=== PATIENT | female | born 1995 | race Caucasian/White ===

== ENCOUNTER 2024-01-17 08:40 | Day surgery (SDC) | payer OTHER ==
[~2024-01-17] VITALS: Ht 152.4 cm; Wt 96.4 kg
[~2024-01-17 08:40] MED LIST: LR 1,000 ML IV SCH
[2024-01-17] MEDS ORDERED: HYDROmorphone 1 MG/1 ML SYRINGE [PACU/SDC ONLY] IV PRN (09:00)
[2024-01-17] MEDS ORDERED: LR 1,000 ML IV SCH (09:00)
[2024-01-17] MEDS ORDERED: Meperidine 50 MG/ML 1 ML VIAL IV PRN (09:00)
[2024-01-17] MEDS ORDERED: Scopolamine 1 MG Delivered 3-Day PATCH TD SCH (09:00)
[2024-01-17] MEDS ORDERED: Ondansetron 4 MG/2 ML VIAL IV PRN ×2 (09:00→11:45)
[2024-01-17] MEDS ORDERED: fentaNYL 50 MCG/ML 1 ML SYRINGE/VIAL [PACU/SDC ONLY] IV PRN (09:00)
[2024-01-17] MEDS ORDERED: hydrALAZINE 20 MG/ML 1 ML VIAL IV PRN (09:00)
[2024-01-17] MEDS ORDERED: Indocyanine Green 12.5 MG in Water For Injection,Sterile 2.5 ML IV ONE (09:30)
[2024-01-17] MEDS ORDERED: Midazolam 2 MG/2 ML VIAL ONE (09:41)
[2024-01-17] MEDS ORDERED: fentaNYL 50 MCG/ML 2 ML VIAL ONE ×2 (09:41→11:27)
[2024-01-17] MEDS ORDERED: Lidocaine PF 2% (20 MG/ML) 5 ML VIAL ONE (09:42)
[2024-01-17] MEDS ORDERED: NS 10 ML IV ONE (09:42)
[2024-01-17] MEDS ORDERED: Ketorolac 30 MG/ML VIAL ONE (09:42)
[2024-01-17] MEDS ORDERED: Glycopyrrolate 0.2 MG/ML 1 ML VIAL ONE (09:42)
[2024-01-17] MEDS ORDERED: Rocuronium 50 MG/5 ML Multi-Dose VIAL ONE (09:42)
[2024-01-17] MEDS ORDERED: Succinylcholine PF 200 MG/10 ML SYRINGE IV ONE (09:42)
[2024-01-17] MEDS ORDERED: dexAMETHasone 10 MG/ML VIAL ONE (09:42)
[2024-01-17] MEDS ORDERED: Ondansetron 4 MG/2 ML VIAL ONE (09:42)
[2024-01-17] MEDS ORDERED: NATURAL IRON65 MG PO (10:08)
[2024-01-17] MEDS ORDERED: PRENATAL TABLET PO (10:09)
[2024-01-17] MEDS ORDERED: NORCO 325 MG-51 TAB PO (10:39)
[2024-01-17 10:48] VITALS: BP 111/56; PULSE 67; TEMP 98.1
[2024-01-17] MEDS ORDERED: Topical Skin Adhesive 1 EACH (1 ML) TOP ONE (10:55)
[2024-01-17] MEDS ORDERED: Acetaminophen 325 MG TAB PO PRN (11:45)
[2024-01-17] MEDS ORDERED: Ibuprofen 600 MG TAB PO PRN (11:45)
[2024-01-17 12:25] VITALS: BP 111/73; PULSE 63; TEMP 97.3
[2024-01-17 12:40] VITALS: BP 119/70; PULSE 55
[2024-01-17 12:42] VITALS: TEMP 97.4
[2024-01-17 12:55] VITALS: BP 129/63; PULSE 66
--- NOTE | 2024-01-17 13:20 | NUR ---
1225- Pt to [facility] bay [address] via cart. Bedside handoff received from KAIN Meyer. VSS. Pt reports pain 4/10, pressure. Skin glue to abdominal incisions x4, CDI. at bedside. Cranberry juice and jello given. 1249- [place] given- see EMAR. Pt denies n/v. 1310- Discharge instructions and education reviewed with patient and . Questions answered. PT aware to pump and dump breastmilk x24 hours. Pt aware of last norco dosing. 1320- IV site removed, pt getting dressed with assistance of .
--- NOTE | 2024-01-17 13:42 | NUR ---
Pt up to bathroom for urine void. Discharges via w/c to husbands car at 1339. Denies complaints at that time.
== END 2024-01-17 13:39 | disposition home or self-care (01) ==
LOC: SDCO 08:40
DX: K80.10 Calculus of gallbladder with chronic cholecystitis without obstruction (principal); E66.9 Obesity, unspecified; Z68.41 Body mass index [BMI] 40.0-44.9, adult
CPT/HCPCS: J0690; J1100; J1885; J2250; J2405; J2704; J3010; J7120